=== PATIENT | male | born 2005 | race Caucasian/White ===

== ENCOUNTER 2023-10-22 10:09 | Emergency (ER) | payer OTHER, SELFPAY ==
[2023-10-22 10:35] VITALS: BP 140/93; PULSE 106; RESP 16; TEMP 36.8; O2SAT 98; BMI 25.1
[2023-10-22] MEDS: Ondansetron ODT 4 MG TAB.RAPDIS TRANSLINGU (10:49)
[2023-10-22 11:07] LABS: Basophils Percent Auto 0.1 % (0-2); Eosinophils Percent Auto 0.1 % (0-4); Hematocrit 47.4 % (42.0-52.0); Hemoglobin 16.3 g/dl (14.0-18.0); Imm Gran Abs Auto 0.03 X10*3/uL (0.00-0.03); Imm Gran Pct Auto 0.3 % (0.0-0.4); Lymphocytes Absolute Auto 0.2 X10*3/uL (1.2-4.9); Lymphocytes Percent Auto 2.1 % (20-40); MANUAL DIFF FLAG SCAN; Mean Corpuscular HGB Conc 34.4 g/dl (31.0-36.0); Mean Corpuscular Hemoglobin 29.2 pg (27.0-33.0); Mean Corpuscular Volume 84.8 fL (80.0-98.0); Mean Platelet Volume 10.9 fL (9.4-12.4); Monocytes Absolute Auto 0.5 X10*3/uL (0.1-1.2); Monocytes Percent Auto 5.5 % (2-11); Neutrophils Absolute Auto 8.9 x10*3/uL (2.0-8.3); Neutrophils Percent Auto 91.9 % (45-73); Platelet Count 240 X10*3/uL (160-400); Red Blood Count 5.59 X10*6/uL (4.60-5.80); Red Cell Distribution Width 12.5 % (11.0-16.0); SCAN SMEAR FLAG 1; White Blood Count 9.7 X10*3/uL (4.8-10.8)
[2023-10-22 11:22] LABS: Alanine Aminotransferase 17 U/L (0-40); Albumin Level 5.1 g/dL (3.5-5.0); Alkaline Phosphatase 105 U/L (39-117); Anion Gap 15 (12-20); Aspartate Amino Transferase 18 U/L (5-37); Bilirubin Total 1.7 mg/dL (0.0-1.0); Blood Urea Nitrogen 16 mg/dL (9-16); Calcium 10.1 mg/dL (8.4-10.2); Carbon Dioxide 25 mmol/L (22-29); Chloride 105 mmol/L (96-108); Creatinine Clr Calc Pharmacy 139.4; Estimated Glomerular Filt Rate > 60; Glucose Random 132 mg/dL (60-115); Lipase 12 U/L (8-78); Potassium 4.4 mmol/L (3.3-5.1); Sodium 141 mmol/L (135-145); Total Protein 8.3 g/dL (6.5-8.0)
[2023-10-22 11:25] LABS: SLIDE REVIEW VERIFIED
[2023-10-22 11:40] LABS: Influenza A PCR NEGATIVE (Negative); Influenza B PCR NEGATIVE (Negative); Resp Syncy Virus RNA Qual PCR NEGATIVE (Negative); SARS COV2 PCR INHOUSE NEGATIVE (Negative)
--- NOTE | 2023-10-22 12:12 | ED.GENADULT ---
HPI - General Adult General Chief complaint: Abdominal Pain Stated complaint: Nausea, diarrhea Time Seen by Provider: 10/22/23 12:11 Source: patient Mode of arrival: ambulatory Limitations: no limitations History of Present Illness HPI narrative: Patient is an otherwise healthy 18 yo male presenting to the Ed complaining of 12 hours of abdominal pain and N/V/D. Patient reports that the symptoms were preceded by a a night out drinking with his friends in which he consumed 8 shots in a 3-4 hour period. Patient does report a 3 year history of social binge drinking on weekends. Patient reports he has experienced similar episodes of these symptoms after drinking but never this severe to the point where he could not tolerate drinking water without vomiting. Patients last PO intake was pizza and ice cream while drinking last night and he has been urinating and passing flatus and stools. Denies dizziness, light headedness, SOB, CP and changes to vision. MD complaint: Abdominal pain with N/V/D Onset (ago): hour(s) (12) Location: abdomen Radiation: non-radiation Severity: mild Severity scale (1-10): 3 Quality: aching Pain Consistency: constant Relieving factors: none Exacerbating factors: none Associated symptoms: nausea/vomiting Treatments prior to arrival: none Related Data Previous Rx's Medication Instructions Recorded ondansetron 4 mg disintegrating 4 mg PO Q8H 3 days #9 tabs 10/22/23 tablet Allergies Allergy/AdvReac Type Severity Reaction Status Date / Time No Known Allergies Allergy Verified 10/22/23 10:42 Review of Systems Constitutional: Constitutional: Denies chills, Denies fever(s), Reports headache(s) and Denies night sweats Eyes: Eyes: Reports no additional eye complaints, Denies blurry vision, Denies change in vision, Denies diplopia, Denies eye discharge, Denies loss of vision and Denies eye pain ENT: Denies dizziness and Reports headache(s) Cardiovascular: Cardiovascular: Reports no additional cardiovascular complaints, Denies chest pain, Denies lightheadedness, Denies Loss of Consciousness and Denies dyspnea Respiratory: Respiratory: Reports no additional respiratory complaints and Denies dyspnea Gastrointestinal: Gastrointestinal: Reports abdominal pain, Denies melena, Denies hematochezia, Reports nausea and Reports vomiting Genitourinary: Genitourinary: Reports no additional male genitourinary complaints, Denies hematuria, Denies oliguria, Denies difficulty urinating, Denies dysuria, Denies urinary frequency, Denies urinary hesitancy, Denies urinary incontinence and Denies urinary urgency Musculoskeletal: Musculoskeletal: Reports no additional musculoskeletal complaints, Denies myalgias, Denies numbness and Denies tingling Neurologic: Denies dizziness, Reports headache(s), Denies loss of vision, Denies numbness and Denies tingling Psychiatric: Psychiatric: Reports no additional psychiatric complaints Endocrine: Endocrine: Reports no additional endocrine complaints Hematologic/Lymphatic: Hematologic/Lymphatic: Reports no additional hematologic/lymphatic complaints Allergic/Immunologic: Allergic/Immunologic: Reports no additional allergic/immunologic complaints PMFSH Past Medical History Attestation statement: The following information was validated with the patient. Source: old records reviewed and nursing notes reviewed Social History Social History Advance Directives: No Advance Directives Information Provided: No Physical Exam ED Vital Signs: Vital Signs - 24 hr 10/22/23 10:35 Temperature 98.3 F Pulse Rate 106 H Respiratory Rate 16 Blood Pressure 140/93 H Pulse Oximetry 98 Oxygen Delivery Method Room Air BMI result Body Mass Index 25.1 Const General: cooperative, no acute distress, alert and awake Nutritional Appearance: average body habitus and well nourished Orientation/consciousness: patient oriented x3 Limitations: no limitations HENMT Head: Yes normal to inspection Ears: hearing grossly normal bilaterally General nose exam: Normal external nose present Face and sinus: Yes normal facial exam Mouth: Normal oral and palatal mucosa present, no drooling and no muffled voice Eyes General: appearance normal, both eyes and all related structures Periorbital: periorbital findings normal Eyelids: Yes eyelids normal Conjunctivae: conjunctivae normal Pupils: Equal, round and reactive pupils present EOM: EOMs intact bilaterally Neck Neck: Yes normal visual inspection, Yes full ROM and Yes no lymphadenopathy Chest Chest palpation & inspection: normal inspection of the chest Resp Effort & Inspection: normal respiratory effort and able to speak in complete sentences Auscultation: clear to auscultation bilaterally Cardio Jugular venous distension: no JVD Palpation: normal PMI Rate: regular rate Rhythm: regular rhythm GI Inspection: Yes normal to inspection Palpation (GI): Soft to palpation, nontender, no guarding, No hepatosplenomegaly present and No Rebound tenderness present Auscultation: normal bowel sounds Neuro General: patient oriented x3 Cranial nerves: Yes Equal, round and reactive pupils present Cognition (Neuro): normal cognition Motor exam (neuro): 5/5 motor strength present throughout Sensory Exam: Normal double simultaneous stimulation for sensation Coordination: [id number] test normal Extrem General: Yes normal to inspection, Yes full ROM and Yes capillary refill normal Psych Appearance: grossly normal Mental Status: mental status grossly normal Affect: normal affect Attitude: cooperative Thought process: Normal thought process present Thought content: Normal thought content present Insight: Good insight present (Psych) Medications Administered Discontinued Medications Generic Name Dose Route Start Last Admin Trade Name Freq PRN Reason Stop Dose Admin Sodium Chloride 1,000 mls @ 999 mls/hr 10/22/23 12:30 10/22/23 12:34 Ns IV 10/22/23 13:30 999 mls/hr .Q1H1M SIMBA Administration Ondansetron HCl 4 mg 10/22/23 10:42 10/22/23 10:49 Ondansetron Odt 4 Mg Tab.Rapdis TRANSLINGU 10/22/23 10:43 4 mg ONCE ONE Administration Ondansetron HCl 4 mg 10/22/23 12:21 10/22/23 12:34 Ondansetron Hcl 4 Mg/2 Ml Vial IVPUSH 10/22/23 12:22 4 mg ONCE ONE Administration Medical Decision Making Medical Decision Making [facility] Narrative: Patient is a 18 year old assigned male at with no reported medical history presenting to the emergency department today with abdominal pain, nausea, and vomiting. Patient's physical exam was unremarkable. Patient's blood work was unremarkable. I explained my physical exam findings as well as all test results to the patient. I answered all questions asked by the patient. Patient received IV fluids and Zofran which he stated helped his symptoms significantly. Patient was able to tolerate PO while in the department. I stressed the importance of the patient taking his medication as prescribed. I stressed the importance of the patient following up with his primary care provider. I stressed the importance of the patient returning to the emergency department immediately if his symptoms were to worsen or if he were to develop any dizziness, shortness of breath, difficulty breathing, chest pain, blurry vision, loss of vision, nausea, vomiting, abdominal pain, fever, chills, back pain, or any other complaints. Patient verbalized agreement and understanding with this treatment plan and discharge. Differential Diagnosis Differential Diagnoses: The differential diagnosis associated with the presentation includes Nausea Vomiting Gastroenteritis Admission/Observation Consideration of admission/observation: Escalation of care including admission/observation considered Patient would have been admitted to the hospital had his work up had any findings where hospital admission was appropriate and his clinical presentation warranted hospital admission. Lab Data [facility] Lab Attestation statement: I reviewed the patient's lab results. My interpretation of these results are in the [facility] Rationale portion of this note. 10/22/23 10:55 10/22/23 10:55 Labs: Lab Results 10/22/23 Range/Units 10:55 WBC 9.7 (4.8-10.8) X10*3/uL RBC 5.59 (4.60-5.80) X10*6/uL Hgb 16.3 (14.0-18.0) g/dl Hct 47.4 (42.0-52.0) % MCV 84.8 (80.0-98.0) fL MCH 29.2 (27.0-33.0) pg MCHC 34.4 (31.0-36.0) g/dl RDW 12.5 (11.0-16.0) % Plt Count 240 (160-400) X10*3/uL MPV 10.9 (9.4-12.4) fL Immature Gran % (Auto) 0.3 (0.0-0.4) % Neut % (Auto) 91.9 H (45-73) % Lymph % (Auto) 2.1 L (20-40) % [place] % (Auto) 5.5 (2-11) % Eos % (Auto) 0.1 (0-4) % Baso % (Auto) 0.1 (0-2) % Lymph # (Auto) 0.2 L (1.2-4.9) X10*3/uL [place] # (Auto) 0.5 (0.1-1.2) X10*3/uL Eos # (Auto) 0.0 (0.0-0.4) X10*3/uL Baso # (Auto) 0.0 (0.0-0.2) X10*3/uL Abs Immat Gran (auto) 0.03 (0.00-0.03) X10*3/uL Absolute Neuts (auto) 8.9 H (2.0-8.3) x10*3/uL Absolute Nucleated RBC 0.000 (0.0-0.012) X10*3/uL Nucleated RBC % (auto) 0.0 (0.0-0.2) /100WBC Smear Tech's Comments VERIFIED Sodium 141 (135-145) mmol/L Potassium 4.4 (3.3-5.1) mmol/L Chloride 105 (96-108) mmol/L Carbon Dioxide 25 (22-29) mmol/L Anion Gap 15 (12-20) BUN 16 (9-16) mg/dL Creatinine 0.90 (0.5-1.4) mg/dL Estim Creat Clear Calc 139.4 Estimated GFR > 60 Random Glucose 132 H (60-115) mg/dL Estimat Average Glucose 91 mg/dL Hemoglobin A1c % 4.8 (<6.0) % Calcium 10.1 (8.4-10.2) mg/dL Total Bilirubin 1.7 H (0.0-1.0) mg/dL AST 18 (5-37) U/L ALT 17 (0-40) U/L Alkaline Phosphatase 105 (39-117) U/L Total Protein 8.3 H (6.5-8.0) g/dL Albumin 5.1 H (3.5-5.0) g/dL Lipase 12 (8-78) U/L Beta-Hydroxybutyrate 0.11 (0.02-0.27) mmol/L Influenza Type A (PCR) NEGATIVE (Negative) Influenza Type B (PCR) NEGATIVE (Negative) RSV RNA Qual (PCR) NEGATIVE (Negative) SARS-CoV-2 RNA (RT-PCR) NEGATIVE (Negative) Tests considered The following testing was considered but not selected: CT of the abdomen and pelvis with IV contrast was considered however, the patient's current clinical presentation and work up did not warrant this. I explained this to the patient who verbalized understanding and agreement. Prescription Management I considered prescription management with: Other (patient prescribed an anti-emetic) Discharge Plan Discharge Clinical Impression: Gastroenteritis Patient Disposition: Home, Self-Care Instructions: Gastroenteritis (DC) Additional Instructions: Follow up with your primary care provider. Return to the emergency department immediately if your symptoms worsen or if you develop any dizziness, shortness of breath, difficulty breathing, chest pain, blurry vision, loss of vision, nausea, vomiting, abdominal pain, fever, chills, back pain, or any other complaints. Prescriptions: New ondansetron 4 mg tablet,disintegrating 4 mg PO Q8H 3 Days Qty: 9 0RF Referrals: [facility] [Provider Group] (Call to establish and follow up with a primary care provider. If you already have a primary care provider, please follow up with them.) [facility], [place] [Provider Group] (Call to establish and follow up with a primary care provider. If you already have a primary care provider, please follow up with them.) [facility],Anali [Provider Group] (Call to establish and follow up with a primary care provider. If you already have a primary care provider, please follow up with them.) Stand Alone Forms: Work/School Release Print Language: Portuguese
[2023-10-22] MEDS: ondansetron HCL 4 MG/2 ML VIAL IVPUSH (12:34)
[2023-10-22] MEDS: 0.9 % Sodium Chloride 1,000 ML 999 ML IV (12:34)
[2023-10-22 12:56] LABS: Estimated Average Glucose 91 mg/dL; Hemoglobin A1c % 4.8 % (<6.0)
[2023-10-22 12:58] LABS: Beta-Hydroxybutyrate 0.11 mmol/L (0.02-0.27)
[2023-10-22 14:28] VITALS: BP 119/55; PULSE 95; RESP 16
== END 2023-10-22 14:32 | disposition home or self-care (01) ==
PROVIDERS: Physician Assistant Medical; Emergency Provider Student in an Organized Health Care Education/Training Program
DX: K52.9 Noninfective gastroenteritis and colitis, unspecified (principal); R11.2 Nausea with vomiting, unspecified; R10.9 Unspecified abdominal pain; Z11.52 Encounter for screening for COVID-19; Z20.822 Contact with and (suspected) exposure to COVID-19; Z79.899 Other long term (current) drug therapy
CPT/HCPCS: 0241U; 36415; 80053; 82010; 83036; 83690; 85025; 96361; 96374; 99284; J2405